=== PATIENT | male | born 1980 | race African-American/Black ===

== ENCOUNTER 2017-05-01 17:42 | Emergency (ER) | payer OTHER ==
[~2017-05-01] VITALS: Ht 177.8 cm; Wt 86.4 kg
[2017-05-01 17:42] VITALS: BP 137/71; PULSE 70; RESP 16; TEMP 99.1; O2SAT 98
[~2017-05-01 17:42] MED LIST: CEPH500C3 PO; PERC10TA27 PO
[2017-05-01] MEDS ORDERED: IBUPROFEN 800 MG TAB PO ONE (19:00)
[2017-05-01] MEDS ORDERED: ORPHENADRINE INJ 60 MG/2 ML AMP IM ONE (19:00)
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
[2017-05-01] MEDS ORDERED: IBUP-232 PO (19:07)
[2017-05-01] MEDS ORDERED: ROBA750T PO (19:07)
== END 2017-05-01 19:22 | disposition home or self-care (01) ==
LOC: NEPK 17:42
DX: S16.1XXA Strain of muscle, fascia and tendon at neck level, initial encounter (principal); S29.012A Strain of muscle and tendon of back wall of thorax, initial encounter; F17.200 Nicotine dependence, unspecified, uncomplicated; V49.40XA Driver injured in collision with unspecified motor vehicles in traffic accident, initial encounter
CPT/HCPCS: 96372; 99284; J2360